=== PATIENT | male | born 1960 | race Caucasian/White ===

== ENCOUNTER → 2021-04-03 14:21 | Outpatient (BNVA) | payer SELFPAY | PROVIDERS: Visit Provider Nurse Practitioner Family | DX: Z20.822 Contact with and (suspected) exposure to COVID-19 (principal); U07.1 COVID-19 | CPT/HCPCS: 87426 ==

== ENCOUNTER 2021-04-04 10:27 | Outpatient (CLI) | payer SELFPAY ==
[2021-04-04 10:50] VITALS: BP 105/68; PULSE 91; RESP 17; TEMP 36.8; O2SAT 93
[2021-04-04 11:20] VITALS: BP 98/62; PULSE 89; O2SAT 92
[2021-04-04 12:15] VITALS: BP 108/70; PULSE 90; RESP 18; TEMP 37.4; O2SAT 95
== END 2021-04-04 10:28 | disposition home or self-care (01) ==
PROVIDERS: Visit Provider Nurse Practitioner Family
DX: U07.1 COVID-19 (principal)
CPT/HCPCS: 96365